=== PATIENT | male | born 2000 | race Two or more races ===

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

== ENCOUNTER 2021-03-20 19:10 | Emergency (ER) | payer OTHER ==
[~2021-03-20] VITALS: Ht 170.2 cm; Wt 59.0 kg
[2021-03-20 21:26] VITALS: BP 129/74
== END 2021-03-20 21:59 | disposition home or self-care (01) ==
LOC: ER 19:11
DX: S76.211A Strain of adductor muscle, fascia and tendon of right thigh, initial encounter (principal); N50.0 Atrophy of testis; X50.0XXA Overexertion from strenuous movement or load, initial encounter; Y93.89 Activity, other specified; Y92.89 Other specified places as the place of occurrence of the external cause; Y99.8 Other external cause status
CPT/HCPCS: 76870